=== PATIENT | female | born 1930 | race Hispanic/Latino ===

== ENCOUNTER 2019-01-04 06:21 | Emergency (ER) | payer MEDICARE ==
[2019-01-04] MEDS ORDERED: DIAZEPAM 5 MG TABLET ONE (07:25)
[2019-01-04] MEDS ORDERED: ASPIRIN 325 MG TABLET ONE (07:25)
[2019-01-04 07:32] LABS: CREATININE 0.7 mg/dL (0.5-1.5); POTASSIUM 3.7 mmol/L (3.5-5.1)
[2019-01-04 07:38] LABS: BILIRUBIN,TOTAL 0.6 mg/dL (0.2-1.0); TOTAL PROTEIN, SERUM 7.8 g/dL (6.0-8.3)
[2019-01-04] MEDS ORDERED: ENALAPRILAT DIHYDRATE 1.25MG/ML 1ML VIAL IV ONE (07:38)
[2019-01-04 07:40] LABS: BASOPHILS % (AUTO) 0.1 % (0.0-5.0); HEMATOCRIT 40.2 % (36-48); INR 1.02 (0.85-1.15); MEAN CORPUSCULAR HEMOGLOBIN 30.9 pg (27.0-33.0); MEAN CORPUSCULAR HGB CONC 33.6 g/dL (32.0-36.0); MEAN CORPUSCULAR VOLUME 92.1 fL (79-99); MONOCYTES % (AUTO) 8.3 % (3.0-13.0); NEUTROPHILS % (AUTO) 66.6 % (40.0-77.0); PARTIAL THROMBOPLASTIN TIME 35.2 SEC (26.3-35.5); PLATELET COUNT (AUTO) 201 K/uL (130-400); PROTHROMBIN TIME 10.7 SEC (9.6-11.6); RED BLOOD CELL COUNT(AUTO) 4.36 MIL/uL (4.00-5.50); RED CELL DISTRIBUTION WIDTH 13.7 % (11.0-15.5)
[2019-01-04] MEDS ORDERED: KETOROLAC TROMETHAMINE 15MG/ML ONE (09:01)
== END 2019-01-04 09:54 | disposition home or self-care (01) ==
LOC: EDH 06:21
DX: I10 Essential (primary) hypertension (principal); M54.2 Cervicalgia; M54.6 Pain in thoracic spine
CPT/HCPCS: 36415; 71045; 80053; 82550; 84484; 85025; 85610; 85730; 93005; 96374; 96375; 99285; J1885; J3490